=== PATIENT | male | born 1985 | race Caucasian/White ===

== ENCOUNTER 2020-09-17 21:08 | Emergency (ER) | payer SELFPAY ==
[2020-09-17] MEDS ORDERED: Clindamycin 150 MG CAP ONE (23:25)
== END 2020-09-17 23:31 | disposition home or self-care (01) ==
LOC: CSHERS 21:08
DX: L03.211 Cellulitis of face (principal); F17.210 Nicotine dependence, cigarettes, uncomplicated
CPT/HCPCS: 10060

== ENCOUNTER 2020-09-22 12:40 | Emergency (ER) | payer SELFPAY | END 2020-09-22 13:30 | disposition home or self-care (01) | LOC: CSHERS 12:40 | DX: L03.211 Cellulitis of face (principal); F17.210 Nicotine dependence, cigarettes, uncomplicated | CPT/HCPCS: 99283 ==